=== PATIENT | female | born 1970 | race Caucasian/White ===

== ENCOUNTER 2018-01-27 06:20 | Day surgery (SDC) | payer OTHER ==
--- NOTE | 2018-01-27 07:38 | HP ---
Admitting History and Physical - Primary Care Physician PCP: Pooja Castillo - Admission History of Present Illness: Patient is a 47 y/o female with a past medical history of depression and anxiety , presents for ect, she has received ect at [facility]. Her last ect session was 06/13. Patient reports she has received a total of 15 ect sessions. She reports a significant improvement in depressive symptoms since starting ect, she admits to self-discontinuing the ect sessions. However, within the past month, she reports feeling increasingly depressed and was evaluated at [facility] ED and was referred for ect. Patient denies any suicidal or homicidal ideation, visual or auditory hallucinations. Patient does report compliance with prescribed medications. History Source: Patient Limitations to Obtaining History: No Limitations - Past Medical History ...LMP: 01/19/18 - Smoking History Smoking history: Former smoker Have you smoked in the past 12 months: Yes If you are a former smoker, when did you quit?: 6 MONTHS AGO - Alcohol/Substance Use Hx Alcohol Use: No - Social History Usual Living Arrangement: Yes: Alone Home Medications - Allergies Allergies/Adverse Reactions: Allergies Allergy/AdvReac Type Severity Reaction Status Date / Time Penicillins Allergy Verified 01/26/18 18:20 - Home Medications Home Medications: Ambulatory Orders Desipramine HCl [Norpramin -] 150 mg PO DAILY 01/26/18 Multivitamins [Tab-A-Vit -] 1 tab PO DAILY 01/26/18 Quetiapine Fumarate [Seroquel -] 25 mg PO HS 01/26/18 clonazePAM [Klonopin -] 0.5 mg PO TID 01/26/18 Family Disease History - Family Disease History Family History: Denies Review of Systems - Review of Systems Constitutional: reports: No Symptoms Eyes: reports: No Symptoms HENT: reports: No Symptoms Neck: reports: No Symptoms Cardiovascular: reports: No Symptoms Respiratory: reports: No Symptoms Gastrointestinal: reports: No Symptoms Genitourinary: reports: No Symptoms Musculoskeletal: reports: No Symptoms Integumentary: reports: No Symptoms Neurological: reports: No Symptoms Endocrine: reports: No Symptoms Hematology/Lymphatic: reports: No Symptoms Psychiatric: reports: No Symptoms Physical Examination Constitutional: Yes: Well Nourished, No Distress, Calm Eyes: Yes: WNL, Conjunctiva Clear, EOM Intact HENT: Yes: WNL, Atraumatic, Normocephalic Neck: Yes: WNL, Supple, Trachea Midline Cardiovascular: Yes: WNL, Regular Rate and Rhythm, S1, S2 Respiratory: Yes: WNL, Regular, CTA Bilaterally Gastrointestinal: Yes: WNL, Normal Bowel Sounds, Soft ...Rectal Exam: Yes: Deferred Renal/: Yes: WNL Musculoskeletal: Yes: WNL Extremities: Yes: WNL Edema: No Peripheral Pulses WNL: Yes Peripheral Pulses: Left Radial: 4+, Right Radial: 4+, Left Doralis Pedis: 3+, Right Dorsalis Pedis: 3+, Left Femoral: 3+, Right Femoral: 3+ Integumentary: Yes: WNL Neurological: Yes: WNL, Alert, Oriented ...Motor Strength: WNL Psychiatric: Yes: WNL, Alert, Oriented Labs: reviewed 02/10 Imaging - Results EKG: Image Reviewed, Other (nsr) Assessment/Plan Patient is a 47 y/o female that presents for ect, labs and ekg reviewed patient is medically optimized for procedure informed consent, risk/benefits to be obtained by Dr Redding
[2018-01-27 07:59] VITALS: TEMP 97.7
[2018-01-27] MEDS ORDERED: KETAMINE HCL 500 MG/10 ML VIAL ONE (08:17)
[2018-01-27 10:24] VITALS: BP 125/71; PULSE 87
== END 2018-01-27 10:00 | disposition home or self-care (01) ==
LOC: EDBD → FECT 06:20
PROVIDERS: ATTEND Psychiatry & Neurology Psychiatry
PROC: GZB4ZZZ Other Electroconvulsive Therapy (ICD-10-PCS; principal; 2018-01-27 08:15)
DX: F33.2 Major depressive disorder, recurrent severe without psychotic features (principal)
CPT/HCPCS: 84703; 90870; 94760

== ENCOUNTER 2018-02-02 05:41 | Day surgery (SDC) | payer OTHER ==
[2018-02-02] MEDS ORDERED: KETOROLAC TROMETHAMINE 30 MG/1 ML VIAL ONE (07:27)
[2018-02-02] MEDS ORDERED: KETAMINE HCL 500 MG/10 ML VIAL ONE (07:28)
[2018-02-02] MEDS ORDERED: ACETAMINOPHEN 325 MG TABLET (FP) PO PRN (07:36)
[2018-02-02] MEDS ORDERED: ONDANSETRON 4 MG/2 ML VIAL IVPUSH PRN (07:36)
[2018-02-02] MEDS ORDERED: LACTATED RINGERS SOLUTION 1,000 ML IV SCH (07:45)
[2018-02-02 08:28] VITALS: TEMP 97.4
[2018-02-02 08:51] VITALS: BP 120/66; PULSE 79
== END 2018-02-02 09:00 | disposition home or self-care (01) ==
LOC: FECT 05:41
PROVIDERS: ATTEND Psychiatry & Neurology Psychiatry
PROC: GZB4ZZZ Other Electroconvulsive Therapy (ICD-10-PCS; principal; 2018-02-02 07:45)
DX: F33.2 Major depressive disorder, recurrent severe without psychotic features (principal)
CPT/HCPCS: 90870; 94760

== ENCOUNTER 2018-02-04 05:43 | Day surgery (SDC) | payer OTHER ==
[2018-02-04] MEDS ORDERED: KETAMINE HCL 500 MG/10 ML VIAL ONE (07:10)
[2018-02-04 08:19] VITALS: BP 122/70; PULSE 82; TEMP 97.9
== END 2018-02-04 08:20 | disposition home or self-care (01) ==
LOC: FECT 05:43
PROVIDERS: ATTEND Psychiatry & Neurology Psychiatry
PROC: GZB4ZZZ Other Electroconvulsive Therapy (ICD-10-PCS; principal; 2018-02-04 07:45)
DX: F33.2 Major depressive disorder, recurrent severe without psychotic features (principal)
CPT/HCPCS: 84703; 90870; 94760

== ENCOUNTER 2018-02-08 05:43 | Day surgery (SDC) | payer OTHER ==
[2018-02-08] MEDS ORDERED: KETAMINE HCL 500 MG/10 ML VIAL ONE (07:14)
[2018-02-08] MEDS ORDERED: KETOROLAC TROMETHAMINE 30 MG/1 ML VIAL ONE (07:14)
[2018-02-08] MEDS ORDERED: LACTATED RINGERS SOLUTION 1,000 ML IV SCH (07:45)
[2018-02-08] MEDS ORDERED: ACETAMINOPHEN 325 MG TABLET (FP) PO PRN (07:45)
[2018-02-08] MEDS ORDERED: ONDANSETRON 4 MG/2 ML VIAL IVPUSH PRN (07:45)
[2018-02-08 08:33] VITALS: TEMP 98.6
[2018-02-08 08:34] VITALS: BP 113/58; PULSE 95
== END 2018-02-08 08:36 | disposition home or self-care (01) ==
LOC: FECT 05:43
PROVIDERS: ATTEND Psychiatry & Neurology Psychiatry
PROC: GZB4ZZZ Other Electroconvulsive Therapy (ICD-10-PCS; principal; 2018-02-08 07:15)
DX: F33.2 Major depressive disorder, recurrent severe without psychotic features (principal)
CPT/HCPCS: 84703; 90870; 94760

== ENCOUNTER 2018-02-09 05:43 | Day surgery (SDC) | payer OTHER ==
[2018-02-09 06:55] VITALS: TEMP 97.9
[2018-02-09] MEDS ORDERED: KETAMINE HCL 500 MG/10 ML VIAL ONE (07:10)
[2018-02-09] MEDS ORDERED: ONDANSETRON 4 MG/2 ML VIAL IVPUSH PRN (07:58)
[2018-02-09] MEDS ORDERED: PROMETHAZINE HCL 25 MG/1 ML VIAL IVPUSH PRN (07:58)
[2018-02-09] MEDS ORDERED: ACETAMINOPHEN 325 MG TABLET (FP) PO PRN (07:58)
[2018-02-09] MEDS ORDERED: LACTATED RINGERS SOLUTION 1,000 ML IV SCH (08:00)
[2018-02-09 08:42] VITALS: BP 134/83; PULSE 77
== END 2018-02-09 08:45 | disposition home or self-care (01) ==
LOC: FECT 05:43
PROVIDERS: ATTEND Psychiatry & Neurology Psychiatry
PROC: GZB4ZZZ Other Electroconvulsive Therapy (ICD-10-PCS; principal; 2018-02-09 07:30)
DX: F33.2 Major depressive disorder, recurrent severe without psychotic features (principal)

== ENCOUNTER 2018-02-11 05:39 | Day surgery (SDC) | payer OTHER ==
[2018-02-11] MEDS ORDERED: KETAMINE HCL 500 MG/10 ML VIAL ONE (07:29)
[2018-02-11] MEDS ORDERED: PROMETHAZINE HCL 25 MG/1 ML VIAL IVPUSH PRN (07:53)
[2018-02-11] MEDS ORDERED: ONDANSETRON 4 MG/2 ML VIAL IVPUSH PRN (07:53)
[2018-02-11] MEDS ORDERED: ACETAMINOPHEN 325 MG TABLET (FP) PO PRN (07:53)
[2018-02-11] MEDS ORDERED: LACTATED RINGERS SOLUTION 1,000 ML IV SCH (08:00)
[2018-02-11 08:58] VITALS: TEMP 97.9
[2018-02-11 09:02] VITALS: BP 118/66; PULSE 86
== END 2018-02-11 08:45 | disposition home or self-care (01) ==
LOC: FECT 05:39
PROVIDERS: ATTEND Psychiatry & Neurology Psychiatry
PROC: GZB4ZZZ Other Electroconvulsive Therapy (ICD-10-PCS; principal; 2018-02-11 07:00)
DX: F33.2 Major depressive disorder, recurrent severe without psychotic features (principal)

== ENCOUNTER 2018-02-14 05:43 | Day surgery (SDC) | payer OTHER ==
[2018-02-14] MEDS ORDERED: KETAMINE HCL 500 MG/10 ML VIAL ONE (07:28)
[2018-02-14 08:40] VITALS: TEMP 97.7
[2018-02-14 09:02] VITALS: BP 118/79; PULSE 56
== END 2018-02-14 09:00 | disposition home or self-care (01) ==
LOC: FECT 05:43
PROVIDERS: ATTEND Psychiatry & Neurology Psychiatry
PROC: GZB4ZZZ Other Electroconvulsive Therapy (ICD-10-PCS; principal; 2018-02-14 07:15)
DX: F33.2 Major depressive disorder, recurrent severe without psychotic features (principal)
CPT/HCPCS: 84703; 90870; 94760

== ENCOUNTER 2018-02-25 05:39 | Day surgery (SDC) | payer OTHER ==
[2018-02-25 09:21] VITALS: TEMP 98.1
[2018-02-25 09:36] VITALS: BP 120/68; PULSE 78
== END 2018-02-25 09:47 | disposition home or self-care (01) ==
LOC: FECT 05:39
PROVIDERS: ATTEND Psychiatry & Neurology Psychiatry
PROC: GZB4ZZZ Other Electroconvulsive Therapy (ICD-10-PCS; principal; 2018-02-25 07:30)
DX: F33.2 Major depressive disorder, recurrent severe without psychotic features (principal)
CPT/HCPCS: 84703; 90870; 94760

== ENCOUNTER 2018-03-04 05:44 | Day surgery (SDC) | payer OTHER ==
[2018-03-04 07:30] VITALS: TEMP 98.4
--- NOTE | 2018-03-04 07:46 | HP ---
Admitting History and Physical - Admission History of Present Illness: Patient is a 47 y/o female with a past medical history of depression and anxiety. patient presents for ECT. Her last ECT was 02/25/2018. Patient does report an improvement in depressive symptoms. She does report feelings of ongoing anxiety. She was started on Seroquel last week with minimal relief of anxiety symptoms. Patient denies any suicidal or homicidal ideation, visual or auditory hallucinations. She does report compliance with prescribed medication. patient denies any recent illnesses or hospitalizations. History Source: Patient Limitations to Obtaining History: No Limitations - Past Medical History ...LMP: 01/19/18 - Smoking History Smoking history: Current every day smoker Have you smoked in the past 12 months: Yes If you are a former smoker, when did you quit?: 6 MONTHS AGO/PT VAPS FOR NOW - Alcohol/Substance Use Hx Alcohol Use: No History of Substance Use: reports: None - Social History Usual Living Arrangement: Yes: With Spouse Home Medications - Allergies Allergies/Adverse Reactions: Allergies Allergy/AdvReac Type Severity Reaction Status Date / Time Penicillins Allergy Verified 01/26/18 18:20 - Home Medications Home Medications: Ambulatory Orders Multivitamins [Multivit ([facility] Formul[facility])] 1 tab PO DAILY 01/26/18 Quetiapine Fumarate [Seroquel -] 50 mg PO TID 01/26/18 Family Disease History - Family Disease History Family History: Denies Review of Systems - Review of Systems Constitutional: reports: No Symptoms Eyes: reports: No Symptoms HENT: reports: No Symptoms Neck: reports: No Symptoms Cardiovascular: reports: No Symptoms Respiratory: reports: No Symptoms Gastrointestinal: reports: No Symptoms Genitourinary: reports: No Symptoms Musculoskeletal: reports: No Symptoms Integumentary: reports: No Symptoms Neurological: reports: No Symptoms Endocrine: reports: No Symptoms Hematology/Lymphatic: reports: No Symptoms Psychiatric: reports: Anxiety Physical Examination Vital Signs: Vital Signs Temperature 98.4 F 03/04/18 07:25 Pulse Rate 74 03/04/18 07:25 Respiratory Rate 18 03/04/18 07:25 Blood Pressure 104/64 03/04/18 07:25 O2 Sat by Pulse Oximetry (%) 100 03/04/18 07:25 Constitutional: Yes: Well Nourished, No Distress, Calm Eyes: Yes: WNL, Conjunctiva Clear, EOM Intact HENT: Yes: WNL, Atraumatic, Normocephalic Neck: Yes: WNL, Supple, Trachea Midline Cardiovascular: Yes: WNL, Regular Rate and Rhythm, S1, S2 Respiratory: Yes: WNL, Regular, CTA Bilaterally Gastrointestinal: Yes: WNL, Normal Bowel Sounds, Soft ...Rectal Exam: Yes: Deferred Renal/: Yes: WNL Breast(s): Yes: WNL Musculoskeletal: Yes: WNL Extremities: Yes: WNL Edema: No Peripheral Pulses WNL: Yes Integumentary: Yes: WNL Neurological: Yes: WNL, Alert, Oriented ...Motor Strength: WNL Psychiatric: Yes: WNL, Alert Labs: Laboratory Tests 02/25/18 07:16 Urine HCG, Qual Negative Imaging - Results EKG: Other (nsr) Assessment/Plan oatient is a 47-year-old female with a history of depression and anxiety that presents for her routine ECT Labs and EKG reviewed. She is medically optimized for procedure.
[2018-03-04] MEDS ORDERED: KETAMINE HCL 500 MG/10 ML VIAL ONE (08:20)
[2018-03-08 09:10] VITALS: BP 127/74; PULSE 88
== END 2018-03-04 09:40 | disposition home or self-care (01) ==
LOC: FECT 05:44
PROVIDERS: ATTEND Psychiatry & Neurology Psychiatry
PROC: GZB4ZZZ Other Electroconvulsive Therapy (ICD-10-PCS; principal; 2018-03-04 07:45)
DX: F33.2 Major depressive disorder, recurrent severe without psychotic features (principal)
CPT/HCPCS: 84703; 90870; 94760